=== PATIENT | female | born 1980 | race African-American/Black ===

== ENCOUNTER 2016-12-09 13:38 | Emergency (ER) | payer MEDICAID, OTHER ==
[~2016-12-09] VITALS: Wt 130.0 kg
[~2016-12-09 13:38] MED LIST: ACET500C PO; ALPR0.5T PO; AMO500 PO; FURO20TA3 PO; GABA300C PO; HYDR-3011 PO; IBUP-1542 PO; LEVE-5 PO; MECL-77 PO; METH500T PO; MIRT15TA5 PO; NAPR-688 PO; ONDA4TAB35 PO; ORA20G7 BUCCAL; TOPI200T8 PO; TRAM-40 PO; VENL75TA2 PO
--- NOTE | 2016-12-09 14:42 | ERD ---
ER Documentation Chief Complaint Date/Time DATE: 12/09/16 TIME: 14:40 Chief Complaint HEADACHE X 1 WEEK; CRANIAL SHUNT IN HEAD HPI This is a 36-year-old woman presenting with headache and "seizures". She has chronic recurrent pains including recurrent headaches and has intermittent full body tremors and is requesting opioids and benzodiazepine medications to help with her symptoms. She has a history of FUR BLOWER shunt although multiple previous CT scans of the brain have been unremarkable. She has had no fevers or chills, no vomiting or diarrhea, no loss of consciousness, no chest pain or shortness of breath. ROS All systems reviewed and are negative except as per history of present illness. Medications Home Meds Active Scripts Ibuprofen* (Ibuprofen*) 600 Mg Tablet, 600 MG PO Q8 for PAIN, #30 TAB Prov:GRACIE HOGAN MD 12/09/16 Alprazolam* (Xanax*) 0.5 Mg Tab, 0.5 MG PO TID, #20 TAB Prov:BRIONNA JAMES DO 08/19/16 Benzocaine* (Orajel Maximum*) 1 Applic Gel, 1 APPLIC BUCCAL Q6, #1 TUB Prov:PRAVEENA YEE. FELLER HAND 07/13/16 Amoxicillin* (Amoxicillin*) 500 Mg Cap, 500 MG PO TID for 7 Days, CAP Prov:PRAVEENA YEE. FELLER HAND 07/13/16 Ibuprofen* (Motrin*) 600 Mg Tab, 600 MG PO Q6H Y for PAIN AND OR ELEVATED TEMP, #30 TAB Prov:MILADYS MIRELES MD 07/12/16 Naproxen* (Naproxen*) 500 Mg Tablet, 500 MG PO BID, #20 TAB Prov:JULIETTE CROSS DO 05/26/16 Tramadol Hcl* (Ultram*) 50 Mg Tablet, 50 MG PO Q6H Y for PAIN, #10 TAB Prov:BRIDGER LAWSON MD 05/17/16 Reported Medications Methocarbamol* (Robaxin*) 500 Mg Tab, 500 MG PO BID, TAB 05/17/16 Levetiracetam* (Keppra*) 500 Mg Tablet, 500 MG PO BID, TAB 05/17/16 Meclizine Hcl* (Meclizine Hcl*) 25 Mg Tablet, 25 MG PO Q8H Y for DIZZINESS, TAB 05/17/16 Venlafaxine Hcl* (Effexor XR*) 75 Mg Tab.er.24, 75 MG PO QAM, TAB.SA 05/17/16 Furosemide* (Furosemide*) 20 Mg Tablet, 20 MG PO DAILY, #60 TAB 05/17/16 Ondansetron Hcl* (Zofran* ODT) 4 mg -ODT Tab.disper, 4 MG PO Q8 Y for NAUSEA AND OR VOMITING, TAB 11/02/14 Topiramate* (Topiramate*) 200 Mg Tablet, 200 MG PO BID, TAB 11/02/14 Gabapentin* (Neurontin*) 300 Mg Capsule, 300 MG PO HS, CAP 11/02/14 Mirtazapine* (Mirtazapine*) 15 Mg Tablet, 15 MG PO HS, TAB 11/02/14 Hydroxyzine Hcl* (Hydroxyzine Hcl*) 25 Mg Tablet, 25 MG PO Q8H Y for ITCHING, TAB 11/02/14 Acetazolamide* (Acetazolamide* ER) 500 Mg Capsule.er, 500 MG PO TID, CAP 11/02/14 Allergies Allergies: Coded Allergies: No Known Allergies (Verified Allergy, Unknown, 07/02/16) PMhx/Soc Pseudotumor cerebri post ventriculoperitoneal shunt with chronic recurrent headaches and [address] scans of the brain over the last 2 years, seizures, pseudoseizures, chronic pain syndrome and opioid dependence, depression History of Surgery: Yes (CHOLYCYSTECTOMY 1997, LUMPECTOMY R BREAST 2013, FUR BLOWER SHUNT 11/11/15) Anesthesia Reaction: No Hx Neurological Disorder: Yes (HX CHRONIC HEADACHES, FUR BLOWER Shunt) Hx Respiratory Disorders: No Hx Cardiac Disorders: No Hx Psychiatric Problems: No Hx Miscellaneous Medical Probl: Yes (ANEMIA,SICKLE CELL TRAIT) Hx Alcohol Use: No Hx Substance Use: Yes (MARIJUANA) Hx Tobacco Use: Yes (3 CIG/DAY X15 YEARS) Smoking Status: Current every day smoker FmHx Family History: No diabetes Physical Exam Vitals Vital Signs Date Time Temp Pulse Resp B/P Pulse Ox O2 Delivery O2 Flow Rate FiO2 12/09/16 13:41 97.9 112 18 143/95 99 Physical Exam GENERAL: Well-developed, well-nourished, anxious HEENT: Moist mucous membranes, pink conjunctiva, no cervical spine tenderness or step-off deformities, no goiter, no jaundice or icterus, extraocular movements intact without pain. No submandibular induration, and no pharyngeal erythema NEURO: Alert and oriented 3, cranial nerves II through XII intact bilaterally, pupils equal round reactive to light, no focal deficits or facial asymmetry, sensation intact distally Strength 5/5 in upper and lower extremities bilaterally CARDIAC: Regular rate and rhythm, no murmurs rubs or gallops LUNGS: Clear bilaterally no wheezing crackles or stridor ABDOMEN: Soft nontender, no guarding, no rigidity, no rebound, no psoas sign no obturator sign. Normoactive bowel sounds SKIN: Warm and dry to touch, no abrasions, contusions, or hematomas, no lacerations, no ecchymosis, no target lesions, and without ulcers EXTREMITIES: No clubbing cyanosis or edema, calves are bilaterally symmetrical, no Homans sign, no popliteal cord sign. Distal pulses equal and bilateral PSYCH: Anxious Results 24 hrs Current Medications Medications (Trade) Dose Ordered Sig/Phylicia Route PRN Reason Start Time Stop Time Status Last Admin Dose Admin Lorazepam (Ativan) 1 mg ONCE ONCE IV 12/09/16 15:00 12/09/16 15:01 DC 12/09/16 14:45 Procedures/MDM IV line was established and I administer lorazepam 1 mg IV to help with her symptoms. Patient stated she had analgesics at home and would rather use her opioid medications that were prescribed to her at home. I refused to give her both benzodiazepines and opioids in the emergency department today. I also reviewed her previous workups and imaging studies. Differential diagnoses considered, included but not limited to acute coronary syndrome, pulmonary embolism, aortic dissection, abdominal aortic aneurysm, sepsis, stroke, meningitis, encephalitis, pneumonia, appendicitis, cholecystitis , bowel obstruction, pyelonephritis, nephrolithiasis, cystitis, as well as metabolic, hematologic, and electrolyte abnormalities. As well as abscess, cellulitis, fractures, and dislocations. Patient feels much better at this time, and vital signs are normal, symptoms have improved. I did give strict instructions to return to the ED if symptoms continue or worsen, patient will otherwise follow-up with primary care physician. Patient understood instructions and agreed to plan. Departure Diagnosis: Primary Impression: Headache Headache type: unspecified Headache chronicity pattern: chronic headache Intractability: not intractable Qualified Code: R51 - Chronic nonintractable headache, unspecified headache type Additional Impression: Conversion disorder Condition: Good Patient Instructions: Self-Care for Headaches, Seizure, Recurrent [Adult] Referrals: DAVID AGUIRRE MD (PCP) GRACIE HOGAN MD Dec 09, 2016 14:42
[2016-12-09] MEDS ORDERED: LORAZEPAM 2 MG INJ IV ONE (15:00)
[2016-12-09] MEDS ORDERED: IBUP-1542 PO (15:50)
== END 2016-12-09 15:58 | disposition home or self-care (01) ==
LOC: E/R 13:38
DX: R51 Headache (principal); R40.2132 Coma scale, eyes open, to sound, at arrival to emergency department; F44.9 Dissociative and conversion disorder, unspecified; F17.210 Nicotine dependence, cigarettes, uncomplicated; R40.2142 Coma scale, eyes open, spontaneous, at arrival to emergency department; R40.2362 Coma scale, best motor response, obeys commands, at arrival to emergency department
CPT/HCPCS: 96374; J2060

== ENCOUNTER 2017-02-10 08:26 | Emergency (ER) | payer SELFPAY ==
[~2017-02-10] VITALS: Ht 167.6 cm; Wt 150.0 kg
[2017-02-10 08:36] VITALS: Ht 167.6 cm; Wt 150.0 kg
[2017-02-10] MEDS ORDERED: morphine 4 MG/ML VIAL IV STA ×2 (08:40→11:16)
[2017-02-10] MEDS ORDERED: ONDANSETRON 4 MG INJ IV STA ×2 (08:40→11:16)
[2017-02-10] MEDS ORDERED: SOD CHLORIDE 0.9% 1,000 ML IV STA (08:40)
--- NOTE | 2017-02-10 08:49 | ERD ---
ER Documentation Chief Complaint Date/Time DATE: 02/10/17 TIME: 08:46 Chief Complaint RAMIREZ X3 WEEK, SHAKINESS TODAY; HX FINAL INSPECTOR TRUCK TRAILER SHUNT REPLACEMENT 10/2015 HPI This is a 36-year-old female with a known history of pseudotumor cerebri with a FINAL INSPECTOR TRUCK TRAILER shunt initially placed in 2013 and most recently replaced in October 2015 at [facility]. The patient indicates she is experiencing a bandlike pressure-like headache for the past 3 weeks. She indicates that the headache has been persistent. She states this is not the worst headache of her life. She has had no fevers or shaking or chills. She denies any changes in vision. She has had no bilious or nonbilious emesis. She does indicate just prior to arrival she developed tremors of her upper and lower extremities as well as her eyes. She has a history of atypical seizures and takes Keppra. She has had no shortness of breath at rest or exertion. She denies any recent remote head trauma ROS All systems reviewed and are negative except as per history of present illness. Medications Home Meds Active Scripts Hydrocodone/Acetaminophen ([place] 5-325 Tablet) 1 Each Tablet, 1 TAB PO Q6H Y for PAIN, #20 TAB Prov:NINA MONTGOMERY 02/10/17 Alprazolam* (Xanax*) 0.5 Mg Tab, 0.5 MG PO TID, #20 TAB Prov:BRIONNA JAMES DO 08/19/16 Tramadol Hcl* (Ultram*) 50 Mg Tablet, 50 MG PO Q6H Y for PAIN, #10 TAB Prov:BRIDGER LAWSON MD 05/17/16 Reported Medications Levetiracetam* (Keppra*) 1,000 Mg Tablet, 1000 MG PO BID, TAB 02/10/17 Methocarbamol* (Robaxin*) 500 Mg Tab, 500 MG PO BID, TAB 05/17/16 Meclizine Hcl* (Meclizine Hcl*) 25 Mg Tablet, 25 MG PO Q8H Y for DIZZINESS, TAB 05/17/16 Venlafaxine Hcl* (Effexor XR*) 75 Mg Tab.er.24, 75 MG PO QAM, TAB.SA 05/17/16 Furosemide* (Furosemide*) 20 Mg Tablet, 20 MG PO DAILY, #60 TAB 05/17/16 Ondansetron Hcl* (Zofran* ODT) 4 mg -ODT Tab.disper, 4 MG PO Q8 Y for NAUSEA AND OR VOMITING, TAB 11/02/14 Topiramate* (Topiramate*) 200 Mg Tablet, 200 MG PO BID, TAB 11/02/14 Gabapentin* (Neurontin*) 300 Mg Capsule, 300 MG PO HS, CAP 11/02/14 Mirtazapine* (Mirtazapine*) 15 Mg Tablet, 15 MG PO HS, TAB 11/02/14 Hydroxyzine Hcl* (Hydroxyzine Hcl*) 25 Mg Tablet, 25 MG PO Q8H Y for ITCHING, TAB 11/02/14 Acetazolamide* (Acetazolamide* ER) 500 Mg Capsule.er, 500 MG PO TID, CAP 11/02/14 Discontinued Reported Medications Levetiracetam* (Keppra*) 500 Mg Tablet, 500 MG PO BID, TAB 05/17/16 Discontinued Scripts Ibuprofen* (Ibuprofen*) 600 Mg Tablet, 600 MG PO Q8 for PAIN, #30 TAB Prov:GRACIE HOGAN MD 12/09/16 Benzocaine* (Orajel Maximum*) 1 Applic Gel, 1 APPLIC BUCCAL Q6, #1 TUB Prov:PRAVEENA YEE FIELD SERVICE TECHNICIAN POULTRY 07/13/16 Amoxicillin* (Amoxicillin*) 500 Mg Cap, 500 MG PO TID for 7 Days, CAP Prov:PRAVEENA YEE FIELD SERVICE TECHNICIAN POULTRY 07/13/16 Ibuprofen* (Motrin*) 600 Mg Tab, 600 MG PO Q6H Y for PAIN AND OR ELEVATED TEMP, #30 TAB Prov:MILADYS MIRELES MD 07/12/16 Naproxen* (Naproxen*) 500 Mg Tablet, 500 MG PO BID, #20 TAB Prov:JULIETTE CROSS DO 05/26/16 Allergies Allergies: Coded Allergies: No Known Allergies (Verified Allergy, Unknown, 02/10/17) PMhx/Soc History of Surgery: Yes (CHOLYCYSTECTOMY 1997, LUMPECTOMY R BREAST 2013, FINAL INSPECTOR TRUCK TRAILER SHUNT 11/11/15) Anesthesia Reaction: No Hx Neurological Disorder: Yes (HX CHRONIC HEADACHES, FINAL INSPECTOR TRUCK TRAILER Shunt) Hx Respiratory Disorders: No Hx Cardiac Disorders: No Hx Psychiatric Problems: No Hx Miscellaneous Medical Probl: Yes (ANEMIA,SICKLE CELL TRAIT) Hx Alcohol Use: No Hx Substance Use: Yes (MARIJUANA) Hx Tobacco Use: Yes (3 CIG/DAY X15 YEARS) Physical Exam Vitals Vital Signs Date Time Temp Pulse Resp B/P Pulse Ox O2 Delivery O2 Flow Rate FiO2 02/10/17 12:16 78 16 124/77 98 Non Rebreather 02/10/17 10:42 88 18 132/79 100 Room Air 02/10/17 08:36 98.2 97 20 135/98 100 Physical Exam Constitutional:Well-developed. Well-nourished. HEENT:Normocephalic. Atraumatic.Pupils were equal round reactive to light. Moist mucous membranes.No tonsillar exudates. Endoscopy exam showed sharp optic disc bilaterally and venous pulsations were present. No nasoseptal hematoma. No hemotympanum. No tenderness over the FINAL INSPECTOR TRUCK TRAILER shunt of the right temporal region. Neck: No nuchal rigidity. No lymphadenopathy. No posterior cervical spine tenderness or step-offs. Respiratory: Not using accessory muscles of respiration.Lungs were clear to auscultation bilaterally. No rhonchi. No rales. No wheezing. Cardiovascular: Regular rate regular rhythm.No murmurs. No rubs were appreciated.S1, S2 normal. Distal pulses are palpable 2+ bilaterally. GI: Abdomen was soft. Nontender. Non Distended. No pulsatile abdominal masses or bruits. No rebound. No guarding. Bowel sounds were present and normal. Muscle skeletal: Full range of motion of both the upper and lower extremities bilaterally.Normal muscle tone.No assymetrical calf tenderness or swelling. Skin: No petechia, no purpura. No lesions on the palms or the soles of the feet. No maculopapular rash. NEURO: Patient was alert, awake, orientated x3.No facial droop. Gait observed and normal with no ataxia.Speech had regular rate and rhythm. No focal neurological deficits. Results 24 hrs Laboratory Tests Test 02/10/17 11:42 Bedside Glucose 94mg/dL Current Medications Medications (Trade) Dose Ordered Sig/Phylicia Route PRN Reason Start Time Stop Time Status Last Admin Dose Admin Sodium Chloride (NS) 1,000 ml @ 1,000 mls/hr Q1H STAT IV 02/10/17 08:40 02/10/17 09:39 DC 02/10/17 09:06 Ondansetron HCl (Zofran Inj) 4 mg ONCE STAT IV 02/10/17 08:40 02/10/17 08:41 DC 02/10/17 09:06 Morphine Sulfate (morphine) 4 mg ONCE STAT IV 02/10/17 08:40 02/10/17 08:41 DC 02/10/17 09:06 Lorazepam (Ativan) 1 mg ONCE ONCE IV 02/10/17 09:00 02/10/17 09:01 DC 02/10/17 09:07 Lorazepam (Ativan) 1 mg ONCE ONCE IV 02/10/17 11:00 02/10/17 11:01 DC 02/10/17 10:41 Morphine Sulfate (morphine) 4 mg ONCE STAT IV 02/10/17 11:16 02/10/17 11:17 DC 02/10/17 11:24 Ondansetron HCl (Zofran Inj) 4 mg ONCE STAT IV 02/10/17 11:16 02/10/17 11:17 DC 02/10/17 11:24 Diclofenac Sodium (Dyloject) 37.5 mg ONCE STAT IV 02/10/17 12:33 02/10/17 12:34 DC 02/10/17 12:39 Procedures/MDM The patient presented to the emergency department with a subacute headache that began within weeks to months of onset. My differential diagnosis included but was not limited to chronic subdural hematoma, brain tumor, brain abscess, chronic sinusitis, temporal arteritis, temporomandibular joint syndrome, psuedotumor cerebri, glaucoma, migrane, HTN, intracranial hemorrhage or cerebral ischemia. I obtained a CT scan of the patient's head and there was no evidence of intracerebral hemorrhage mass-effect or midline shift. The patient indicates that she has not been able to take any analgesic medication other than over-the- counter ibuprofen as she had complications with her insurance and normally would take [place] when her pain will become less intense. This was not the patients worse headache of their life. The patient had a complete neurologic and fundoscopic exam performed by myself that was normal with no focal neurological deficits or retinal hemorrhage. The patient stated this headache was not severe or distinct from other headaches and the history with the physical exam findings did not likely suggest SAH. Therefore, I did not feel it was clinically necessary to perform a lumbar puncture and CSF analysis. Please note that the patient has very poor peripheral vascular access. Nursing staff as well as the special education inclusion teacher attempted to draw blood work for ancillary laboratory work. The patient did consent to a femoral stick in order for me to obtain blood work. The right femoral vein was cannulated using an 18-gauge needle by myself under sterile conditions however the blood obtained had clotted. The patient had an Accu-Chek performed and was normal at 79. The patient was refusing any further ancillary laboratory work attempts. She has no history of renal failure and therefore I did not feel the patient's symptoms were result of an electrolyte abnormality. Observation Note: Time: 4 hours Family Hx: No Hypertension Evaluation: Multiple exams showed improving symptoms and no evidence of complications of her FINAL INSPECTOR TRUCK TRAILER shunt. However during her observation. The patient had 2 seizure-like activities. The patient appeared in my clinical impression to be experiencing pseudoseizures as she had tremors of her upper extremities and shaking of her head however she was speaking during these activity requesting Ativan. IV Ativan 1 mg had been given for the 2 seizure-like activities were the patient did not lose urinary incontinence and did not bite her tongue which completely resolved afterwards The patient had IV access established by nursing staff and was given IV Zofran and morphine for analgesic control. The pain is completely resolved and she felt comfortable being discharged home and she was requesting a prescription for [place]. The patient was discharged home in fair condition. They were instructed to return to the emergency department at any time if there was any worsening of their condition. The patient stated they would follow up with their PCP in the next 24-48 hours to initiate a suitable medication regimen under the care of their PCP as well as to allow their PCP to monitor any drug reactions. The patient was discharged home with prescriptions after they gave informed consent to the new medication. They were also fully informed by myself on the adverse effects and adverse drug interactions in order to provide adequate safeguards to prevent possible adverse reactions to medications. Departure Diagnosis: Primary Impression: Headache Headache type: tension-type Headache chronicity pattern: episodic headache Intractability: not intractable Qualified Code: G44.219 - Episodic tension- type headache, not intractable Additional Impression: Seizure-like activity Condition: Fair NINA MONTGOMERY Feb 10, 2017 08:49
[2017-02-10] MEDS ORDERED: LORAZEPAM 2 MG INJ IV ONE ×2 (09:00→11:00)
--- NOTE | 2017-02-10 09:33 | RADRPT ---
PROCEDURE: CT Brain without. CLINICAL INDICATION: Headache, weakness, history of seizure and GLAZING SUPERINTENDENT shunt. TECHNIQUE: A CT of the brain was performed on multidetector high-resolution CT scanner utilizing a xial sections from the skull base through the vertex without contrast. The scan was reviewed in sof t tissue brain and high frequency resolution bone algorithm windows. Images were reviewed on a high -resolution PACS workstation. One or more the following does reduction techniques were utilized: Aut omated exposure control, adjustment of the mA/ or kV according to patient's size, or use of iterativ e reconstruction technique. The exam CTDI = 44.81 mGy and the DLP = 720.23 mGy-cm. COMPARISON: Brain CT 08/19/2016. FINDINGS: The right frontal approach ventriculostomy catheter is again noted crossing the midline and terminat es in the region of the body of the left lateral ventricle. The lateral and third ventricles are sli t-like without significant interval change compared to prior CT. There is no intracranial hemorrhage, mass effect or midline shift. No abnormal intra-axial or extra -axial fluid collections are seen. The arambula/white matter differentiation is preserved. The visualized paranasal sinuses are essentially clear. The right parietal katharine hole is again noted. IMPRESSION: 1. Similar position of right frontal approach ventriculostomy catheter. Slit-like appearance of lat eral and third ventricles without significant interval change compared to prior CT. 2. No acute intracranial hemorrhage, transcortical infarction or mass effect. RPTAT: HH .Jose Sales MD, MD Date Time Electronically viewed and signed by .Jose Sales MD, MD on 02/10/2017 09:33 .N/
[2017-02-10] MEDS ORDERED: LEVE100018 PO (11:08)
[2017-02-10] MEDS ORDERED: DICLOFENAC SODIUM 37.5 MG/ML VIAL IV STA (12:33)
[2017-02-10] MEDS ORDERED: HYDR-906 PO (12:43)
[2017-02-10 13:37] VITALS: BP 132/67; PULSE 84; RESP 16
== END 2017-02-10 13:39 | disposition home or self-care (01) ==
LOC: E/R 08:26
DX: G44.219 Episodic tension-type headache, not intractable (principal); F17.210 Nicotine dependence, cigarettes, uncomplicated; R40.2142 Coma scale, eyes open, spontaneous, at arrival to emergency department; R40.2252 Coma scale, best verbal response, oriented, at arrival to emergency department; R40.2362 Coma scale, best motor response, obeys commands, at arrival to emergency department
CPT/HCPCS: 70450; 82962; J2060; J2270; J2405; J7030; 36415; 96374; 96375; 96376

== ENCOUNTER 2017-07-29 10:23 | Emergency (ER) | payer OTHER ==
[~2017-07-29] VITALS: Ht 175.3 cm; Wt 130.0 kg
[~2017-07-29 10:23] MED LIST changes: -AMO500 PO; +HYDR-906 PO; -IBUP-1542 PO; -LEVE-5 PO; +LEVE100018 PO; +LEVE500T8 PO; +LORA1TAB PO; -NAPR-688 PO; +ONDA4TAB8 PO; -ORA20G7 BUCCAL; +OXYC-279 PO; +TOPI25CA PO
[2017-07-29 10:25] VITALS: Ht 175.3 cm; Wt 130.0 kg
--- NOTE | 2017-07-29 11:19 | RADRPT ---
PROCEDURE: CT brain without contrast CLINICAL INDICATION: Headaches, recent fall, history CASKET TRIMMER shunt TECHNIQUE: CT of the brain without contrast was performed on a multidetector CT scanner, with multi planar reformats. One or more of the following dose reduction techniques were used: Automated expos ure control, adjustment in mA and / or kV according to patient size, use of iterative reconstructive technique. CTDIvol = 45 mGy; DLP = 630 mGy-cm. COMPARISON: None available FINDINGS: Right trans frontal ventricular shunt is unchanged in position with the tip in the region of the bod y of the left lateral ventricle. The ventricles - sulci are unchanged in size and configuration with out hydrocephalus identified. Lateral - third ventricles remain small, slit-like in appearance. No acute intracranial hemorrhage is identified. No extra-axial fluid collection is seen. No mass ef fect or midline shift is identified. The density of the brain is unremarkable. Mckenzie-white differentiation is preserved. The rest of the calvarium, and skull base are intact. Mastoid air cells and imaged paranasal sinuse s grossly clear. IMPRESSION: 1. No evidence of acute intracranial pathology. No significant interval change. 2. Right trans frontal ventricular shunt in place, with small slit like third - lateral ventricles. RPTAT: VV .Avery Mcfarlane MD, Date Time Electronically viewed and signed by .Avery Mcfarlane MD, on 07/29/2017 11:19 .O/
--- NOTE | 2017-07-29 12:29 | ERD ---
ER Documentation Chief Complaint Date/Time DATE: 07/29/17 TIME: 12:27 Chief Complaint shaking head, obey command not talking, ambulatory, has icp idiopatic HPI Patient is a 37-year-old female who presents with trip and fall. She has had a headache since the fall 2 days ago. She had dizziness as well. She has a history of a PERSONAL INVESTMENT ADVISER shunt. The patient has had no treatment yet for pain. She also says that she has "eyes that are killing me". Upon review of old medical records the patient has multiple visits for similar type complaints. ROS All systems reviewed and are negative except as per history of present illness. Medications Home Meds Active Scripts Hydrocodone/Acetaminophen ([place] 5-325 Tablet) 1 Each Tablet, 1 TAB PO Q6H Y for PAIN, #20 TAB Prov:NINA MONTGOMERY 02/10/17 Alprazolam* (Xanax*) 0.5 Mg Tab, 0.5 MG PO TID, #20 TAB Prov:BRIONNA JAMES DO 08/19/16 Tramadol Hcl* (Ultram*) 50 Mg Tablet, 50 MG PO Q6H Y for PAIN, #10 TAB Prov:BRIDGER LAWSON MD 05/17/16 Reported Medications Levetiracetam* (Keppra*) 1,000 Mg Tablet, 1000 MG PO BID, TAB 02/10/17 Methocarbamol* (Robaxin*) 500 Mg Tab, 500 MG PO BID, TAB 05/17/16 Meclizine Hcl* (Meclizine Hcl*) 25 Mg Tablet, 25 MG PO Q8H Y for DIZZINESS, TAB 05/17/16 Venlafaxine Hcl* (Effexor XR*) 75 Mg Tab.er.24, 75 MG PO QAM, TAB.SA 05/17/16 Furosemide* (Furosemide*) 20 Mg Tablet, 20 MG PO DAILY, #60 TAB 05/17/16 Ondansetron Hcl* (Zofran* ODT) 4 mg -ODT Tab.disper, 4 MG PO Q8 Y for NAUSEA AND OR VOMITING, TAB 11/02/14 Topiramate* (Topiramate*) 200 Mg Tablet, 200 MG PO BID, TAB 11/02/14 Gabapentin* (Neurontin*) 300 Mg Capsule, 300 MG PO HS, CAP 11/02/14 Mirtazapine* (Mirtazapine*) 15 Mg Tablet, 15 MG PO HS, TAB 11/02/14 Hydroxyzine Hcl* (Hydroxyzine Hcl*) 25 Mg Tablet, 25 MG PO Q8H Y for ITCHING, TAB 11/02/14 Acetazolamide* (Acetazolamide* ER) 500 Mg Capsule.er, 500 MG PO TID, CAP 11/02/14 Allergies Allergies: Coded Allergies: No Known Allergies (Verified Allergy, Unknown, 02/10/17) PMhx/Soc History of Surgery: Yes (CHOLYCYSTECTOMY 1997, LUMPECTOMY R BREAST 2013, PERSONAL INVESTMENT ADVISER SHUNT 11/11/15) Anesthesia Reaction: No Hx Neurological Disorder: Yes (HX CHRONIC HEADACHES, PERSONAL INVESTMENT ADVISER Shunt) Hx Respiratory Disorders: No Hx Cardiac Disorders: No Hx Psychiatric Problems: No Hx Miscellaneous Medical Probl: Yes (ANEMIA,SICKLE CELL TRAIT) Hx Alcohol Use: No Hx Substance Use: Yes (MARIJUANA) Hx Tobacco Use: Yes (3 CIG/DAY X15 YEARS) FmHx Family History: No diabetes Physical Exam Vitals Vital Signs Date Time Temp Pulse Resp B/P Pulse Ox O2 Delivery O2 Flow Rate FiO2 07/29/17 10:25 98.1 98 18 135/82 99 Physical Exam Const: No acute distress Head: Atraumatic Eyes: Normal Conjunctiva ENT: Normal External Ears, Nose and Mouth. Neck: Full range of motion..~ No meningismus. Resp: Clear to auscultation bilaterally Cardio: Regular rate and rhythm, no murmurs Abd: Soft, non tender, non distended. Normal bowel sounds Skin: No petechiae or rashes Back: No midline or flank tenderness Ext: No cyanosis, or edema Neur: Awake and alert, flickering of the eyes bilaterally, able to follow commands, no seizure activity Procedures/MDM EKG read by me: Rate/Rhythm: Regular rate and rhythm at a rate of 73 Intervals: Normal Impression: No evidence of ischemia or arrhythmia Patient is a 37-year-old female with PERSONAL INVESTMENT ADVISER shunt who presents with a fall and headache. CT scan shows no sign of skull fracture or intracranial hemorrhage or hydrocephalus. I believe outpatient management is appropriate. EKG shows no signs of ischemia. She can return for any worsening symptoms. Departure Diagnosis: Primary Impression: Fall Encounter type: initial encounter Qualified Code: W19.XXXA - Fall, initial encounter Additional Impression: Headache Headache type: unspecified Headache chronicity pattern: acute headache Intractability: not intractable Qualified Code: R51 - Acute nonintractable headache, unspecified headache type Condition: Fair Patient Instructions: Self-Care for Headaches Additional Instructions: Call your primary care doctor TOMORROW for an appointment during the next 1-2 days.See the doctor sooner or return here if your condition worsens before your appointment time. MILADYS MIRELES MD Jul 29, 2017 12:29
== END 2017-07-29 14:41 | disposition left against medical advice (07) ==
LOC: E/R 10:23
DX: R51 Headache (principal); F17.210 Nicotine dependence, cigarettes, uncomplicated; R00.1 Bradycardia, unspecified
CPT/HCPCS: 70450; 93005; Z7502

== ENCOUNTER 2017-08-25 08:43 | Emergency (ER) | payer OTHER ==
[~2017-08-25] VITALS: Ht 170.2 cm; Wt 104.5 kg
[2017-08-25 08:45] VITALS: Ht 170.2 cm; Wt 104.5 kg
[2017-08-25] MEDS ORDERED: SOD CHLORIDE 0.9% 500 ML IV STA (09:19)
[2017-08-25 09:40] VITALS: BP 138/77; PULSE 89; RESP 20; TEMP 98.3
[2017-08-25] MEDS ORDERED: PROCHLORPERAZINE 10 MG INJ IV STA (09:45)
[2017-08-25] MEDS ORDERED: ACETAMINOPHEN 500 MG TAB PO STA (09:45)
[2017-08-25] MEDS ORDERED: DIPHENHYDRAMINE 50 MG INJ IV STA (09:45)
--- NOTE | 2017-08-25 10:24 | ERD ---
ER Documentation Chief Complaint Chief Complaint RAMIREZ, DIZZINES [id number] THIS AM, PT HAS VENT SHUNT X2YRS HPI This is a 37-year-old female with a past medical history of pseudotumor cerebri status post RN HEMO DIALYSIS shunt placement, complicated by malfunction with revision in 2014 , recurrent headaches, on seizure prophylaxis, multiple ER visits in the past for headache, now presenting with worsening headache over the last day with nausea, nonbilious nonbloody vomiting 1, and reported eye fluttering. The patient does not endorse changes to her vision. She does not have blurry or double vision. She has not had any increased confusion. The patient has had no focal deficits. The patient has had no weakness or numbness or tingling to the face or extremities. The patient states that she actually did not want to come into the emergency department, but her significant other strongly encouraged her to do so. She has not seen her neurosurgeon in quite some time. She reports that her neurosurgeon is in [place]. Patient reports taking her medications compliantly. The patient denies feeling sick recently. The patient denies fever or chills. The patient has had no headache or vision changes. The patient denies lightheadedness or dizziness. The patient has had no chest pain or shortness of breath trouble breathing. The patient denies abdominal pain or changes to bowel movements or urination. ROS All systems reviewed and are negative except as per history of present illness. Medications Home Meds Active Scripts Ondansetron Hcl* (Zofran*) 4 Mg Tablet, 4 MG PO Q6H for NAUSEA AND/OR VOMITING, #15 TAB Prov:GRACIE HOGAN MD 04/22/17 Oxycodone HCl/Acetaminophen (Percocet 5-325 mg Tablet) 1 Each Tablet, 1 EACH PO TID for PAIN, #12 TAB Prov:GRACIE HOGAN MD 04/22/17 Oxycodone HCl/Acetaminophen (Percocet 5-325 mg Tablet) 1 Each Tablet, 1 EACH PO TID for PAIN, #12 TAB Prov:GRACIE HOGAN MD 04/22/17 Lorazepam* (Lorazepam*) 1 Mg Tablet, 1 MG PO Q8H Y for SEIZURE OR ANXIETY, #15 TAB Prov:BRIONNA AJMES DO 03/17/17 Hydrocodone/Acetaminophen ([place] 5-325 Tablet) 1 Each Tablet, 1 TAB PO Q6H Y for PAIN, #20 TAB Prov:VALENTINANINA 02/10/17 Alprazolam* (Xanax*) 0.5 Mg Tab, 0.5 MG PO TID, #20 TAB Prov:KRISJULILIZBETANDRA PatriciaJeremy MCCORD 08/19/16 Tramadol Hcl* (Ultram*) 50 Mg Tablet, 50 MG PO Q6H Y for PAIN, #10 TAB Prov:BRIDGER LAWSON MD 05/17/16 Reported Medications Levetiracetam* (Levetiracetam*) 500 Mg Tablet, 500 MG PO BID, TAB 04/22/17 Topiramate* (Topamax*) 25 Mg Cap.sprink, 25 MG PO BID, CAP 04/22/17 Levetiracetam* (Keppra*) 1,000 Mg Tablet, 1000 MG PO BID, TAB 02/10/17 Methocarbamol* (Robaxin*) 500 Mg Tab, 500 MG PO BID, TAB 05/17/16 Meclizine Hcl* (Meclizine Hcl*) 25 Mg Tablet, 25 MG PO Q8H Y for DIZZINESS, TAB 05/17/16 Venlafaxine Hcl* (Effexor XR*) 75 Mg Tab.er.24, 75 MG PO QAM, TAB.SA 05/17/16 Furosemide* (Furosemide*) 20 Mg Tablet, 20 MG PO DAILY, #60 TAB 05/17/16 Ondansetron Hcl* (Zofran* ODT) 4 mg -ODT Tab.disper, 4 MG PO Q8 Y for NAUSEA AND OR VOMITING, TAB 11/02/14 Topiramate* (Topiramate*) 200 Mg Tablet, 200 MG PO BID, TAB 11/02/14 Gabapentin* (Neurontin*) 300 Mg Capsule, 300 MG PO HS, CAP 11/02/14 Mirtazapine* (Mirtazapine*) 15 Mg Tablet, 15 MG PO HS, TAB 11/02/14 Hydroxyzine Hcl* (Hydroxyzine Hcl*) 25 Mg Tablet, 25 MG PO Q8H Y for ITCHING, TAB 11/02/14 Acetazolamide* (Acetazolamide* ER) 500 Mg Capsule.er, 500 MG PO TID, CAP 11/02/14 Allergies Allergies: Coded Allergies: No Known Allergies (Verified Allergy, Unknown, 02/10/17) PMhx/Soc History of Surgery: Yes (RN HEMO DIALYSIS Shunt) Anesthesia Reaction: No Hx Neurological Disorder: Yes (pseudotumor cerebri) Hx Respiratory Disorders: No Hx Cardiac Disorders: Yes (HTN) Hx Psychiatric Problems: No Hx Miscellaneous Medical Probl: No Hx Alcohol Use: No Hx Substance Use: No Hx Tobacco Use: No Smoking Status: Never smoker FmHx Family History: coronary disease Physical Exam Vitals Vital Signs Date Time Temp Pulse Resp B/P Pulse Ox O2 Delivery O2 Flow Rate FiO2 08/25/17 08:45 97.4 84 20 138/84 99 Physical Exam Const: No apparent distress, well-developed, well-nourished Head: Atraumatic Eyes: Normal Conjunctiva. Extraocular movements intact. Patient's eyelids are fluttering, but she is distractible at which point her eyelids stopped fluttering. ENT: Normal External Ears, Nose and Mouth. Neck: Full range of motion. ~ No meningismus. Resp: Clear to auscultation bilaterally Cardio: Regular rate and rhythm, no murmurs Abd: BMI 36, soft, non tender, non distended. Normal bowel sounds Skin: No petechiae or rashes Back: No midline or flank tenderness Ext: No cyanosis, or edema Neur: Awake and alert, oriented 4. Cranial nerves intact. No facial droop. Normal strength and sensation in all extremities. Coordination with finger to nose normal. Psych: Normal Mood and Affect Result Diagram: 08/25/17 1135 08/25/17 1135 Results 24 hrs Laboratory Tests Test 08/25/17 09:37 08/25/17 11:35 Bedside Glucose 74mg/dL White Blood Count 10.910^3/ul Red Blood Count 4.8710^6/ul Hemoglobin 12.9g/dl Hematocrit 42.7% Mean Corpuscular Volume 87.7fl Mean Corpuscular Hemoglobin 26.5pg Mean Corpuscular Hemoglobin Concent 30.2g/dl Red Cell Distribution Width 15.8% Platelet Count 55635^3/UL Mean Platelet Volume 11.7fl Neutrophils % 55.6% Lymphocytes % 37.2% Monocytes % 5.4% Eosinophils % 1.1% Basophils % 0.4% Nucleated Red Blood Cells % 0.0/100WBC Neutrophils # 6.110^3/ul Lymphocytes # 4.110^3/ul Monocytes # 0.610^3/ul Eosinophils # 0.110^3/ul Basophils # 0.010^3/ul Nucleated Red Blood Cells # 0.010^3/ul Sodium Level 147mmol/L Potassium Level 3.7mmol/L Chloride Level 119mmol/L Carbon Dioxide Level 17mmol/L Anion Gap 15 Blood Urea Nitrogen 14mg/dl Creatinine 0.87mg/dl Glucose Level 83mg/dl Calcium Level 8.9mg/dl Current Medications Medications (Trade) Dose Ordered Sig/Phylicia Route PRN Reason Start Time Stop Time Status Last Admin Dose Admin Sodium Chloride (NS) 500 ml @ 500 mls/hr Q1H STAT IV 08/25/17 09:19 08/25/17 10:18 DC 08/25/17 09:56 Acetaminophen (Tylenol Tab) 1,000 mg ONCE STAT PO 08/25/17 09:45 08/25/17 09:48 DC 08/25/17 09:56 Prochlorperazine (Compazine Inj) 10 mg ONCE STAT IV 08/25/17 09:45 08/25/17 09:48 DC Diphenhydramine HCl (Benadryl) 25 mg ONCE STAT IV 08/25/17 09:45 08/25/17 09:48 DC Ketorolac Tromethamine (Toradol) 15 mg ONCE STAT IV 08/25/17 10:34 08/25/17 10:35 DC Procedures/MDM MDM Patient's presentation warrants further investigation. The patient has a RN HEMO DIALYSIS shunt which needs to be evaluated anytime she presents with a headache with nausea and vomiting. That said, her neurologic exam is reassuring. I am suspicious that her eye fluttering is of an organic pathology as it stops when she is distracted. She reports taking her medications compliantly. I will obtain basic blood work and an EKG to evaluate for any other possible etiologies of headache. I will obtain a urine test. I also evaluate the shunt with a CT of the head and x-rays of the skull, chest and abdomen. He will receive medications for a headache, including IV fluids, Compazine and Benadryl. I will consider Toradol if her CT scan of the head is negative for intracranial hemorrhage. I will also consider Depakote if her headache persists. LABS The patient's blood work was obtained and reviewed. The patient seemed shows mild leukocytosis but no left shift. The patient is afebrile, and I do not suspect a systemic infection. The patient is not anemic today. The patient's platelet count is unremarkable. The patient's CMP shows mild hypernatremia that has been seen in the past. She also has a mild drop in her CO2, but no anion gap. This may be evaluated as an outpatient. The patient has normal renal function testing. Patient is not . EKG EKG read by me: Rate/Rhythm: Regular rate and rhythm at a rate of 74bpm Intervals: Normal [place]: Normal Impression: No evidence of ischemia or arrhythmia IMAGING CT Head FINDINGS: Right trans frontal ventricular shunt is unchanged in position with the tip in the region of the body of the left lateral ventricle. The ventricles - sulci are unchanged in size and configuration without hydrocephalus identified. Lateral - third ventricles remain small, slit-like in appearance. No acute intracranial hemorrhage is identified. No extra-axial fluid collection is seen. No mass effect or midline shift is identified. The density of the brain is unremarkable. Mckenzie-white differentiation is preserved. Old right parietal calvarial katharine hole is also noted. The rest of the calvarium, and skull base are intact. Mastoid air cells and imaged paranasal sinuses grossly clear. IMPRESSION: No evidence of acute intracranial pathology. No significant interval change. Right trans frontal ventricular shunt in place, with small slit like third - lateral ventricles. Electronically viewed and signed by .Avery Mcfarlane MD, MD on 08/25/2017 10:25 XR Skull FINDINGS: Intact right frontal ventricular shunt tubing courses through the right soft tissues of the neck, overlies the hemithorax and extends caudal to the right hemidiaphragm. No aggressive appearing osteolytic or osteoblastic lesions involve the calvarium. The soft tissues are unremarkable. IMPRESSION: Intact right frontal ventricular shunt tubing. No aggressive appearing osteolytic or osteoblastic lesions which involve the calvarium. Electronically viewed and signed by Physician Michelle on 08/25/2017 10 :57 XR Chest FINDINGS: The cardiomediastinal silhouette is stable in size and configuration. No superimposed acute pulmonary process is present. A right sided RN HEMO DIALYSIS shunt catheter overlies the right hemithorax and extends caudal to the diaphragm. The soft tissues are unremarkable. IMPRESSION: No acute pulmonary disease. Right-sided RN HEMO DIALYSIS shunt catheter which overlies the right hemithorax and extends caudal to the hemidiaphragm. Electronically viewed and signed by Yamile Brandt Physician on 08/25/2017 10 :49 XR Abd FINDINGS: A right-sided RN HEMO DIALYSIS shunt catheter tube crosses the midline at the approximate L4 vertebral body. The tip terminates within the right thanh pelvis.. The bowel gas pattern is normal. There is no evidence of obstruction. There are no abnormal calcifications overlying the urinary tracts. The osseus structures are unremarkable. IMPRESSION: Intact RN HEMO DIALYSIS catheter with tip terminating in the right thanh pelvis. No evidence of an obstructive bowel gas pattern. Electronically viewed and signed by Physician Michelle on 08/25/2017 10 :51 TREATMENT/DISPOSITION The patient was given a headache cocktail of IV fluids, Compazine, Benadryl and Toradol with resolution of her headache. Her RN HEMO DIALYSIS shunt studies are reassuring. I do not suspect an infection. She has a normal neurologic exam. Stable for discharge. She needs to follow-up with her primary care doctor in 2- 3 days for reevaluation. She also needs to call her neurosurgeon to schedule a follow-up appointment, as the patient reports that it has been a long time since she has seen her neurosurgeon. The patient be given precautions with which to return to the emergency department. Patient expressed understanding of this and intends to follow-up. The patient left prior to discharge paperwork being given to her verbal discharge instructions were provided. The patient pulled her own IV out. Departure Diagnosis: Primary Impression: Headache Headache type: unspecified Headache chronicity pattern: chronic headache Intractability: not intractable Qualified Code: R51 - Chronic nonintractable headache, unspecified headache type Additional Impressions: Metabolic acidosis RN HEMO DIALYSIS (ventriculoperitoneal) shunt status Condition: Stable LAMONT SAMANIEGO MD Aug 25, 2017 10:20
--- NOTE | 2017-08-25 10:25 | RADRPT ---
PROCEDURE: CT brain without contrast CLINICAL INDICATION: Headache TECHNIQUE: CT of the brain without contrast was performed on a multidetector CT scanner, with multi planar reformats. One or more of the following dose reduction techniques were used: Automated expos ure control, adjustment in mA and / or kV according to patient size, use of iterative reconstructive technique. CTDIvol = 45 mGy; DLP = 720 mGy-cm. COMPARISON: CT brain 07/29/2017 FINDINGS: Right trans frontal ventricular shunt is unchanged in position with the tip in the region of the bod y of the left lateral ventricle. The ventricles - sulci are unchanged in size and configuration with out hydrocephalus identified. Lateral - third ventricles remain small, slit-like in appearance. No acute intracranial hemorrhage is identified. No extra-axial fluid collection is seen. No mass eff ect or midline shift is identified. The density of the brain is unremarkable. Mckenzie-white differentiation is preserved. Old right parietal calvarial katharine hole is also noted. The rest of the calvarium, and skull base are intact. Mastoid air cells and imaged paranasal sinuses grossly clear. IMPRESSION: 1. No evidence of acute intracranial pathology. No significant interval change. 2. Right trans frontal ventricular shunt in place, with small slit like third - lateral ventricles. RPTAT: AA .Avery Mcfarlane MD, Date Time Electronically viewed and signed by .Avery Mcfarlane MD, MD on 08/25/2017 10:25 .O/
[2017-08-25] MEDS ORDERED: KETOROLAC 15 MG INJ IV STA (10:34)
--- NOTE | 2017-08-25 10:50 | RADRPT ---
PROCEDURE: XR Chest. CLINICAL INDICATION: BENZENE WASHER shunt series TECHNIQUE: Single portable view of the chest was obtained. COMPARISON: CT BRAIN 08/25/2017; CR CHEST 08/19/2016 FINDINGS: The cardiomediastinal silhouette is stable in size and configuration. No superimposed acute pulmonar y process is present. A right sided BENZENE WASHER shunt catheter overlies the right hemithorax and extends caud al to the diaphragm. The soft tissues are unremarkable. IMPRESSION: 1. No acute pulmonary disease. 2. Right-sided BENZENE WASHER shunt catheter which overlies the right hemithorax and extends caudal to the htanh diaphragm. RPTAT: HRSR Physician Michelle Date Time Electronically viewed and signed by Physician Michelle on 08/25/2017 10:49 RR/
--- NOTE | 2017-08-25 10:52 | RADRPT ---
PROCEDURE: XR Abdomen. CLINICAL INDICATION: HORTICULTURAL TECHNICAL OFFICER shunt series TECHNIQUE: AP supine. COMPARISON: Chest of same date. FINDINGS: A right-sided HORTICULTURAL TECHNICAL OFFICER shunt catheter tube crosses the midline at the approximate L4 vertebral body. The t ip terminates within the right thanh pelvis.. The bowel gas pattern is normal. There is no evidence o f obstruction. There are no abnormal calcifications overlying the urinary tracts. The osseus structures are unremarkable. IMPRESSION: 1. Intact HORTICULTURAL TECHNICAL OFFICER catheter with tip terminating in the right thanh pelvis. 2. No evidence of an obstructive bowel gas pattern. RPTAT: HRSR Physician Michelle Date Time Electronically viewed and signed by Physician Michelle on 08/25/2017 10:51 RR/
--- NOTE | 2017-08-25 10:58 | RADRPT ---
PROCEDURE: Skull series. CLINICAL INDICATION: TECHNOLOGY SUPPORT ANALYST shunt series. TECHNIQUE: AP and cross-table lateral views of the skull were obtained. COMPARISON: Chest and abdomen of the same date. FINDINGS: Intact right frontal ventricular shunt tubing courses through the right soft tissues of th e neck, overlies the hemithorax and extends caudal to the right hemidiaphragm. No aggressive appeari ng osteolytic or osteoblastic lesions involve the calvarium. The soft tissues are unremarkable. IMPRESSION: 1. Intact right frontal ventricular shunt tubing. 2. No aggressive appearing osteolytic or osteoblastic lesions which involve the calvarium. RPTAT: HRSR Physician Michelle Date Time Electronically viewed and signed by Yamile Brandt Physician on 08/25/2017 10:57 RR/
[2017-08-25 12:01] LABS: BASOPHILS % 0.4 % (0.0-2.0); EOSINOPHILS # 0.1 10^3/ul (0.0-0.5); EOSINOPHILS % 1.1 % (0.0-7.0); HEMATOCRIT 42.7 % (37.0-47.0); HEMOGLOBIN 12.9 g/dl (12.0-16.0); LYMPHOCYTES # 4.1 10^3/ul (0.8-2.9); LYMPHOCYTES % 37.2 % (15.0-51.0); MEAN CORPUSCULAR HEMOGLOBIN 26.5 pg (29.0-33.0); MEAN CORPUSCULAR HGB CONC 30.2 g/dl (32.0-37.0); MEAN CORPUSCULAR VOLUME 87.7 fl (82.0-101.0); MEAN PLATELET VOLUME 11.7 fl (7.4-10.4); MONOCYTE # 0.6 10^3/ul (0.3-0.9); MONOCYTES % 5.4 % (0.0-11.0); NEUTROPHIL # 6.1 10^3/ul (1.6-7.5); NEUTROPHILS % 55.6 % (39.0-77.0); PLATELET COUNT 358 10^3/UL (140-415); RED BLOOD COUNT 4.87 10^6/ul (4.20-5.40); RED CELL DISTRIBUTION WIDTH 15.8 % (11.5-14.5); WHITE BLOOD COUNT 10.9 10^3/ul (4.8-10.8)
[2017-08-25 12:22] LABS: CALCIUM 8.9 mg/dl (8.4-10.2); CREATININE 0.87 mg/dl (0.44-1.00); POTASSIUM 3.7 mmol/L (3.5-5.1)
[2017-08-25] MEDS ORDERED: CITA20TA6 PO (12:45)
== END 2017-08-25 12:00 | disposition home or self-care (01) ==
LOC: E/R 08:43
DX: R51 Headache (principal); R40.2252 Coma scale, best verbal response, oriented, at arrival to emergency department; E87.2 Acidosis; I10 Essential (primary) hypertension; R40.2142 Coma scale, eyes open, spontaneous, at arrival to emergency department; R40.2362 Coma scale, best motor response, obeys commands, at arrival to emergency department; Z98.2 Presence of cerebrospinal fluid drainage device
CPT/HCPCS: 36415; 70250; 70450; 71010; 74000; 80048; 82962; 85025; 93005; J1200; J7040; Z7502; Z7610

== ENCOUNTER 2018-07-06 10:50 | Inpatient (IN) | END 2018-07-09 16:00 | disposition home or self-care (01) | DRG 92 ==

== ENCOUNTER 2018-07-28 07:17 | Emergency (ER) | END 2018-07-28 11:14 | disposition home or self-care (01) ==

== ENCOUNTER 2018-08-16 20:07 | Emergency (ER) | END 2018-08-16 21:35 | disposition home or self-care (01) ==

== ENCOUNTER 2018-09-06 19:55 | Emergency (ER) | END 2018-09-06 23:10 | disposition home or self-care (01) ==